=== PATIENT | male | born 1975 | race Caucasian/White ===

== ENCOUNTER 2020-03-17 15:05 | Emergency (ER) | payer BC ==
[2020-03-17] MEDS ORDERED: Dexamethasone 4 MG/ML 5 ML MDV IM ONE (16:21)
[2020-03-17] MEDS ORDERED: hydrOXYzine HCl 50 MG/ML SDV IM ONE (16:22)
--- NOTE | 2020-03-17 16:33 | EDM.PDOC ---
ED HPI GENERAL MEDICAL PROBLEM - General Chief Complaint: General Stated Complaint: HAND TINGLING Time Seen by Provider: 03/17/20 15:35 Source of Information: Reports: Patient History Limitations: Reports: No Limitations - History of Present Illness INITIAL COMMENTS - FREE TEXT/NARRATIVE: Pt developed tingling in both hands after fishing on sunday. Since then has developed itching , swelling and rash in the hands that has extended to the arms , legs and face Was wearing shorts at the time and sleeveless shirt Rash shows a demarcation at the point where his shorts and socks stop and also his shirt sleeves States he does not think it was sun burn , has been on prednisone for the past 18 days for arthritis in his lower back pt is on Sulfasalazine Onset: Gradual Onset Date: 03/14/20 Duration: Day(s): (3), Getting Worse Location: Reports: Head, Face, Neck, Upper Extremity, Left, Upper Extremity, Right, Lower Extremity, Left, Lower Extremity, Right Quality: Reports: Burning Severity: Moderate Improves with: Reports: Cold Therapy Worsens with: Reports: Heat Therapy Context: Reports: Other Associated Symptoms: Reports: No Other Symptoms Treatments [employer]: Reports: Other (see below) - Related Data Allergies Allergy/AdvReac Type Severity Reaction Status Date / Time No Known Allergies Allergy Verified 03/17/20 15:29 Home Meds: Home Meds ALPRAZolam [Alprazolam] 0.25 mg PO TID PRN 03/17/20 [History] Acyclovir [Zovirax] 200 mg PO DAILY 03/17/20 [History] Celecoxib 100 mg PO BID 03/17/20 [History] Glucosam/Chondr/Collagn/Hyalur [Glucosamine & Chondroitin Cap] 1 tab PO DAILY 03/17/20 [History] Loteprednol Etabonate 1 drop EYERT DAILY 03/17/20 [History] Omeprazole 40 mg PO DAILY 03/17/20 [History] hydrOXYzine pamoate [Vistaril] 50 mg PO Q8H PRN #20 cap 03/17/20 [Rx] predniSONE [Prednisone] 5 mg PO DAILY 03/17/20 [History] sulfaSALAzine 500 mg PO BID 03/17/20 [History] traMADol HCl [Tramadol HCl] 50 mg PO Q6HR PRN 03/17/20 [History] Past Medical History HEENT History: Reports: Cataract, Impaired Vision Gastrointestinal History: Reports: GERD Musculoskeletal History: Reports: Arthritis Other Musculoskeletal History: unknown orgin Immunologic History: Reports: Other (See Below) Other Immunologic History: herpes Dermatologic History: Reports: Other (See Below) Other Dermatologic History: rash - Past Surgical History GI Surgical History: Reports: Jatin Fundoplication Social & Family History - Family History Family Medical History: Noncontributory - Tobacco Use Smoking Status *Q: Current Every Day Smoker Years of Tobacco use: 20 Packs/Tins Daily: 0.5 - Caffeine Use Caffeine Use: Reports: Coffee - Alcohol Use Days Per Week of Alcohol Use: 7 Number of Drinks Per Day: 2 Total Drinks Per Week: 14 - Recreational Drug Use Recreational Drug Use: No ED ROS GENERAL - Review of Systems Review Of Systems: See Below Constitutional: Reports: No Symptoms HEENT: Reports: No Symptoms Respiratory: Reports: No Symptoms Cardiovascular: Reports: No Symptoms Endocrine: Reports: No Symptoms GI/Abdominal: Reports: No Symptoms : Reports: No Symptoms Musculoskeletal: Reports: No Symptoms Skin: Reports: Pruritis, Rash, Erythema, Urticaria (on the arms face, legs ( sun exposed areas)) Neurological: Reports: No Symptoms Psychiatric: Reports: Anxiety Hematologic/Lymphatic: Reports: No Symptoms Immunologic: Reports: No Symptoms ED EXAM, GENERAL - Physical Exam Exam: See Below Exam Limited By: No Limitations General Appearance: Alert, WD/WN, No Apparent Distress, Anxious Eye Exam: Bilateral Eye: EOMI Ears: Normal External Exam, Hearing Grossly Normal Ear Exam: Bilateral Ear: Auricle Normal Nose: Normal Inspection, Normal Mucosa Throat/Mouth: Normal Oropharynx, Normal Voice Head: Atraumatic, Normocephalic, Facial Swelling (where rash is noted) Neck: Supple, Non-Tender Respiratory/Chest: Lungs Clear, Normal Breath Sounds Cardiovascular: Normal Peripheral Pulses, Regular Rate, Rhythm GI/Abdominal: Soft, Non-Tender Back Exam: Normal Inspection, Full Range of Motion Extremities: Normal Inspection, Normal Range of Motion Neurological: Alert, Oriented Psychiatric: Normal Affect Skin Exam: Warm, Dry, Intact Lymphatic: No Adenopathy Course - Vital Signs Last Recorded V/S: Last Vital Signs Temp 36.7 C 03/17/20 15:28 Pulse 104 H 03/17/20 15:28 Resp 18 03/17/20 15:28 BP 128/88 03/17/20 15:28 Pulse Ox 97 03/17/20 15:28 - Orders/Labs/Meds Meds: Medications Discontinued Medications Generic Name Dose Route Start Last Admin Trade Name Deborah PRN Reason Stop Dose Admin Dexamethasone 10 mg 03/17/20 16:21 03/17/20 16:30 Dexamethasone IM 03/17/20 16:22 10 mg ONETIME ONE Administration Hydroxyzine HCl 50 mg 03/17/20 16:22 03/17/20 16:30 Vistaril IM 03/17/20 16:23 50 mg ONETIME ONE Administration - Re-Assessments/Exams Free Text/Narrative Re-Assessment/Exam: 03/17/20 16:39 stable , discussed in detail with pt. Has no change in his routines. Except taking sulfazalazine and being out in the sun Departure - Departure Time of Disposition: 16:55 Disposition: Home, Self-Care 01 Clinical Impression: Dermatitis due to sunburn, Dermatitis, contact, photosensitive, Pruritus of skin - Discharge Information *PRESCRIPTION DRUG MONITORING PROGRAM REVIEWED*: Not Applicable *COPY OF PRESCRIPTION DRUG MONITORING REPORT IN PATIENT AGUSTÍN: Not Applicable Prescriptions: hydrOXYzine pamoate [Vistaril] 50 mg PO Q8H PRN #20 cap PRN Reason: Itching Instructions: Pruritus Referrals: Nancy Washington PA-C [Primary Care Provider] - Forms: ED Department Discharge Sepsis Event Note (ED) - Evaluation Sepsis Screening Result: No Definite Risk - Focused Exam Vital Signs: Vital Signs Temp Pulse Resp BP Pulse Ox 03/17/20 15:28 36.7 C 104 H 18 128/88 97
== END 2020-03-17 16:53 | disposition home or self-care (01) ==
LOC: FB.ED 15:05
DX: L25.9 Unspecified contact dermatitis, unspecified cause (principal); L55.9 Sunburn, unspecified; L56.8 Other specified acute skin changes due to ultraviolet radiation; K21.9 Gastro-esophageal reflux disease without esophagitis; F17.210 Nicotine dependence, cigarettes, uncomplicated; Z79.899 Other long term (current) drug therapy
CPT/HCPCS: 96372; 99282; J1100; J3410